=== PATIENT | female | born 1955 | race Caucasian/White ===

== ENCOUNTER → 2017-11-05 | Day surgery (SDC) | payer BC ==
[~2017-11-05] VITALS: Ht 152.4 cm; Wt 59.5 kg
[~2017-11-05] MED LIST: *morphine SULFATE 8 MG/ML PERIprocedure ONLY ONE; ACETAMINOPHEN 1000 MG/100 ML 100 ML IV ONE; ACETAMINOPHEN/HYDROcodone 325 MG/5 MG TAB PO PRN; CHLORHEXIDINE GLUCONATE 2 % 1 PACK (2 CLOTHS) TOPICAL PRN; DO NOT ADM ANY ANTICOAGULANT DRUGS PRN; GLUC500T4 PO; IBUP200T47 PO; LACTATED RINGER'S 1000 ML IV PRN; LIDOCAINE HCL 1% PF 5 ML SYRINGE OTHER ONE; METOPROLOL TARTRATE 25 MG TAB PO PRN; METRONIDAZOLE 500 MG/100 ML ISONTONIC SOLN IV ONE; MORPHINE SULFATE 4 MG/ML INJ IV PRN; NORC5TAB PO; ONDANSETRON HCL 4 MG/2 ML VIAL IV ONE; ONDANSETRON HCL 4 MG/2 ML VIAL IV PUSH PRN; PHENYLEPH/NS 1000 MCG/10 ML SYR IV ONE; POVIDONE IODINE 5% (ANTISEPSIS KIT) 4 APPLICATIONS EACH NARE PRN; PROPOFOL 200 MG/20 ML AMP IV ONE; ROCURONIUM INJ 50 MG/5 ML SYRINGE IV PUSH ONE; SIMV20TA PO; SODIUM CHLORID 0.9% 500 ML IV PRN; SUGAMMADEX SODIUM 200 MG/2 ML VIAL IV PUSH ONE; TEMA15CA PO; [UNRECOGNIZED DRUG - CODE] P-ARTICULR; ceFAZolin 1,000 MG/NS 100 ML IV ONE; ceFAZolin INJ 1,000 MG VIAL ONE
[2017-11-05 09:09] LABS: AUTOMATED NEUTROPHIL # 3.4 TH/MM3 (1.8-7.7); BASOPHIL # 0.1 TH/MM3 (0-0.2); EOSINOPHIL # 0.3 TH/MM3 (0-0.4); EOSINOPHIL % 4.1 % (0.0-4.0); HEMATOCRIT 39.1 % (35.0-46.0); HEMOGLOBIN 13.3 GM/DL (11.6-15.3); LYMPH % 30.7 % (9.0-44.0); LYMPHOCYTE # 1.9 TH/MM3 (1.0-4.8); MEAN CELL VOLUME 88.5 FL (80.0-100.0); MEAN CORPUSCULAR HEMOGLOBIN 30.1 PG (27.0-34.0); MEAN CORPUSCULAR HGB CONC 34.1 % (32.0-36.0); MEAN PLATELET VOLUME 7.8 FL (7.0-11.0); MONO % 9.6 % (0.0-8.0); MONOCYTE # 0.6 TH/MM3 (0-0.9); NEUT % 54.6 % (16.0-70.0); PLATELET COUNT 205 TH/MM3 (150-450); RED BLOOD COUNT 4.42 MIL/MM3 (4.00-5.30); RED CELL DISTRIBUTION WIDTH 12.9 % (11.6-17.2); WHITE BLOOD COUNT 6.3 TH/MM3 (4.0-11.0)
[2017-11-05 09:39] LABS: CALCIUM 8.8 MG/DL (8.5-10.1); CREATININE 0.79 MG/DL (0.50-1.00)
[2017-11-05] MEDS: BUPIVACAINE/EPINEPHRINE 0.5% PF 30 ML VIAL ONE (12:18)
--- NOTE | 2017-11-05 13:45 | HHI.PR ---
cc: Tavares Bishop MD Immediate Post Op Note Procedure Date: Nov 05, 2017 Pre Op Diagnosis: Mass at appendiceal orifice Post Op Diagnosis: Same Surgeon: Tavares Bishop Measurer Machine(s): KG Zee Procedure: Laparoscopic appendectomy and laparoscopic partial cecal resection Findings: Grossly dilated appendix Complications: None Specimen(s) removed: Appendix and base of cecum to pathology Estimated blood loss: 30 ml Anesthesia: General Drains: None IVF (1100 ml) Patient to: PACU Patient Condition: Good Date/Time of Procedure: SEE SURGICAL CARE RECORD Tavares Bishop MD Nov 05, 2017 13:45
[2017-11-05 14:10] VITALS: BP 121/71; PULSE 89; RESP 18; TEMP 97.8; O2SAT 99
--- NOTE | 2017-11-05 22:59 | EKG ---
Date Performed: 11/05/2017 Time Performed: 08:50:22 PTAGE: 62 years EKG: Sinus rhythm BORDERLINE LEFT AXIS DEVIATION BORDERLINE ECG PREVIOUS TRACING : 01/11/2011 10.48 Since the previous tracing, no significant change noted DOCTOR: Fabian Dukes Interpretating Date/Time 11/05/2017 22:58:04
--- NOTE | 2017-11-06 00:41 | MP ---
cc: Tavares Bishop MD,Jo Ann Emery,Moe SAINI DATE OF OPERATION: 11/05/2017 PROCEDURE: 1. Laparoscopic appendectomy. 2. Partial cecal resection. PREOPERATIVE DIAGNOSIS: Abnormal appendix with possible mucocele versus appendiceal mass. POSTOPERATIVE DIAGNOSIS: Abnormal appendix with possible mucocele versus appendiceal mass. ANESTHESIA: General endotracheal. SURGEON: Tavares Bishop MD ESTIMATED BLOOD LOSS: 30 mL. FLUIDS: 1100 mL crystalloid. BRAILLE TYPIST: KG Montero COMPLICATIONS: None. DRAINS: None. SPECIMEN: Appendix and base of cecum to pathology. PROCEDURE IN DETAIL: The patient was taken to the operating room and placed on the operating room table in the supine position. After an adequate level of general endotracheal anesthesia was achieved, the right arm was kept out and the left arm tucked. The abdomen was prepped and draped in usual fashion. Time out was taken confirming the correct patient, site and procedure to be performed. Skin and subcutaneous tissue was infiltrated with local anesthetic and an incision made in the umbilicus and carried through the fascia sharply. The peritoneal cavity was directly visualized. A 12 mm balloon trocar was inserted and the balloon inflated. The abdomen was insufflated. The patient was placed in Trendelenburg position. A 5 mm 30 degree laparoscope was inserted. Two 5 mm trocars were then placed, with the first in the right lower quadrant and the second in the suprapubic region. Both entered the abdominal cavity under direct vision uneventfully. The appendix was seen to be quite swollen but did not appear to be inflamed. The mesoappendix was carefully taken down with the harmonic scalpel in a bloodless fashion. The cecum was then mobilized from the retroperitoneal location utilizing the harmonic scalpel and minimal use of blunt dissection. When the cecum was completely mobilized, and the ileum was easily visualized, a 60 mm powered stapler was brought in via the umbilical port and angled so that the entire appendix and the inferior portion of the cecum was included. Care was taken to not include the ileocecal valve in the staple line. The stapler was fired and the appendix and a portion of the cecum was almost completely transected. The second firing to the stapler allowed for the distal cecum and the appendix to be completely removed. This was placed into an EndoCatch device and removed via the umbilical port while observing the via the right lower quadrant 5 mm trocar site. The specimen was passed off the table. The mesoappendix and staple line were reexamined. Two small bleeding points were controlled with the harmonic scalpel. The abdomen was irrigated and any loose cristina were collected and discarded. After all irrigation was aspirated and hemostasis was assured, insufflation was discontinued. Careful examination of the pelvis and the upper abdomen prior to discontinuation of insufflation revealed no evidence of neoplastic disease on the peritoneal wall or in any of the organs that could be easily visualized. The 5 mm trocars were removed under direct vision with no bleeding noted from the trocar sites during desufflation. The laparoscope and umbilical port were removed. The fascia was closed in the umbilicus with both simple interrupted and [id number] 0 Vicryl suture. The remaining local anesthetic was injected into each of the trocar sites. The skin was closed at each site with 4-0 Vicryl in an interrupted buried fashion. All sites were dressed with Steri-strips. The patient was extubated and taken back to the recovery room in stable condition. She tolerated the procedure well. Tavares Bishop MD MAF/rt , 11:24 PM , 12:39 AM
== END | disposition home or self-care (01) ==
LOC: HSDC 08:17
PROVIDERS: ATTEND Surgery Trauma Surgery
DX: K38.8 Other specified diseases of appendix (principal); R94.31 Abnormal electrocardiogram [ECG] [EKG]
CPT/HCPCS: 00840; 44970; 80048; 85025; 88304; 93005; J0131; J0690; J2270; J2370; J2405; J3010